=== PATIENT | female | born 1985 | race Caucasian/White ===

== ENCOUNTER → 2018-10-14 16:46 | Outpatient (REF) | payer OTHER, SELFPAY | LOC: LAB 16:46 | PROVIDERS: Family Provider Family Medicine; Visit Provider Family Medicine | DX: J02.9 Acute pharyngitis, unspecified (principal) | CPT/HCPCS: 87081; 87147 ==

== ENCOUNTER → 2019-02-14 14:45 | Outpatient (CLI) | payer OTHER, SELFPAY ==
--- NOTE | 2019-02-14 | DI.US.S_ITS ---
PROCEDURE: US OB <= 14 WEEKS FETUS INDICATIONS: INITIAL SIZING AND DATING OUTSIDE/PRIOR DATING DATA: Last menstrual period (LMP): 12/05/18 LMP-based estimated date of delivery (JAKE): 09/11/19. First dating scan (date and location): 02/14/19, current exam, [facility]. Estimated date of delivery (JAKE) from first dating scan: 09/09/19. TECHNIQUE: Real-time scanning was performed of the fetus and maternal pelvic organs, with image documentation. Endovaginal scanning was also performed to better visualize the fetus and maternal ovaries. COMPARISON: [facility], PELVIC COMPLETE, 05/18/2017, 10:50. [facility], PELVIC COMPLETE, 05/12/2017, 10:36. [facility], [facility], 02/02/2017, 13:39. [facility], OB COMPLETE LESS THAN 14 WKS, 09/02/2016, 9:17. FINDINGS: Embryo: [place]-rump length measures 3.5 cm corresponding to a calculated gestational age of 10 weeks 3 days. Embryonic heart rate measures 180 beats per minute. A yolk sac is identified. Measurement variability in dating: +/- 4 weeks by LMP, +/- 7 days by mean sac diameter (use before 6 weeks gestation if crown-rump length not able to be measured), +/- 5 days by crown-rump length (up to 8 weeks 6 days gestation), +/- 7 days by crown-rump length (up to 13 weeks 6 days gestation). Maternal organs: The uterus measures 9.5 x 6.7 x 9.1 cm. The right ovary measures 3.5 x 1.8 x 2.2 cm. There is an approximate 2.2 cm thick walled cyst with peripheral vascularity in the right ovary, most consistent with a corpus luteal cyst. The left ovary measures 2.4 x 1.7 x 1.8 cm. IMPRESSION: Single intrauterine gestation with measured heart rate of 180 beats per minute and calculated gestational age of 10 weeks, 3 days. Dictated by: Gustavo Maldonado [facility] Interpreted: Darren Blanchard MD on 02/14/2019 at 15:51 Approved by: Darren Blanchard M.D. on 02/15/2019 at 2:17
== END ==
PROVIDERS: Family Provider Family Medicine; Visit Provider Family Medicine
DX: Z34.91 Encounter for supervision of normal pregnancy, unspecified, first trimester (principal); Z3A.10 10 weeks gestation of pregnancy
CPT/HCPCS: 76801; 76817

== ENCOUNTER → 2019-04-28 15:18 | Outpatient (CLI) | payer OTHER, SELFPAY ==
--- NOTE | 2019-04-28 | DI.US.S_ITS ---
PROCEDURE: US OB >= 14 WEEKS FETUS INDICATIONS: ANATOMY SCAN OUTSIDE/PRIOR DATING DATA: Last menstrual period (LMP): 12/05/18 LMP-based estimated date of delivery (JAKE): 09/11/19. First dating scan (date and location): 02/14/19, 02/14/19, [facility]. Estimated date of delivery (JAKE) from first dating scan: 09/09/19. TECHNIQUE: Real-time scanning was performed of the fetus, with image documentation and biometric measurements. COMPARISON: [facility], , OB <= 14 WEEKS FETUS, 02/14/2019, 14:57. FINDINGS: General: A single live intrauterine gestation is present. Presentation: Vertex. Placenta: Placental position is anterior, without previa. Amniotic fluid index: 12.7 cm, normal range is 5-24 cm. heart rate: 147 beats per minute. Maternal cervical canal: 3.4 cm long. Normal lower limit is 2.5 cm. biometrics: Biparietal diameter: 4.9 cm equals 20 weeks 6 days Head circumference: 18.8 cm equals 21 weeks 1 day Abdominal circumference: 17.9 cm equals 20 weeks 5 days Femur length: 3.6 cm equals 21 weeks 2 days Estimated gestational age from initial scan: 20 weeks 6 days Composite gestational age from present scan: 21 weeks 3 days Estimated weight and percentile: 463 g, 93rd percentile Measurement variability for biometric dating: +/- 7 days from 14 weeks to 15 weeks 6 days gestation, +/- 10 days from 16 weeks to 21 weeks 6 days gestation, +/- 2 weeks from 22 weeks to 27 weeks 6 days gestation, +/- 3 weeks for 28 weeks gestation or later. weight reference: 4500 g or EFW >90/95% is considered macrosomia or large for gestational age. EFW <10% is small for gestational age. EFW 5% or less is considered intra-uterine growth restriction. Anatomic survey: Neuro: Ventricles are non-dilated at less than 10 mm. Cisterna magna is normal at 3-11 mm. Cerebellum is normal in size and morphology. Nuchal skin fold: Normal at less than 6 mm between 14-21 weeks gestational age. Face: Nose and lips, facial profile are normal. Spine: No evidence for spina bifida. Heart: 4-chambered heart is present, with normal ventricular outflow tracts. Diaphragm: Diaphragm is intact. Stomach: Left-sided stomach is present. Kidneys: No hydronephrosis. Normal is less than 5 mm in 2nd trimester, less than 7 mm in 3rd trimester. Cord: 3-vessel cord has orthotopic insertion. Bladder: Normal in size. Extremities: All 4 extremities identified. IMPRESSION: No anatomic abnormalities are identified. Normal interval growth when compared to the prior ultrasound examination. Dictated by: Naveen Young M.D. on 04/28/2019 at 15:51 Approved by: Naveen Young M.D. on 04/28/2019 at 15:53
== END ==
PROVIDERS: Family Provider Family Medicine; Visit Provider Family Medicine
DX: Z36.89 Encounter for other specified antenatal screening (principal); Z3A.21 21 weeks gestation of pregnancy
CPT/HCPCS: 76811

== ENCOUNTER → 2019-06-09 15:14 | Outpatient (CLI) | payer OTHER, SELFPAY ==
[2019-06-09 17:17] LABS: Hematocrit 32.3 % (36-46); Hemoglobin 10.9 g/dL (12.0-16.0); Mean Corpuscular HGB Conc 33.9 % (30-36); Mean Corpuscular Hemoglobin 31.3 PG (26-34); Mean Corpuscular Volume 92.3 fL (80-100); Platelet Count 238 X10^3/uL (150-400); Red Cell Distribution Width 13.3 % (11.6-14.8); White Blood Cell Count 11.1 X10^3/uL (4.5-11.0)
[2019-06-09 19:03] LABS: GTT (PREG) 1 Hour PP 50gm Dose 91 mg/dL (76-139)
== END ==
PROVIDERS: Visit Provider Student in an Organized Health Care Education/Training Program
DX: Z34.92 Encounter for supervision of normal pregnancy, unspecified, second trimester (principal)
CPT/HCPCS: 36415; 82950; 85027; 86850

== ENCOUNTER → 2019-11-01 14:47 | Outpatient (CLI) | payer OTHER, SELFPAY ==
--- NOTE | 2019-11-01 | DI.US.S_ITS ---
PROCEDURE: US PELVIC COMPLETE INDICATIONS: IRREGULAR BLEEDING, 8 WEEKS POST TECHNIQUE: Real-time scanning was performed of the pelvic organs, with image documentation. Additional endovaginal scanning was necessary due to incomplete visualization of the adnexal and endometrial structures by transabdominal scanning. COMPARISON: [facility], [place], PELVIC COMPLETE, 05/18/2017, 10:50. FINDINGS: Transabdominal scanning: Limited scanning through the kidneys shows no hydronephrosis. No pathologic free abdominal or pelvic fluid. Endovaginal scanning: Uterus: Uterus is normal in size at 8.1 x 5.2 x 3.4 cm. The endometrium measures 6.0 mm in combined thickness. No retained products of conception. Prominent scar noted with mild heterogeneity of the adjacent myometrium. Ovaries: Bilateral follicular cysts; otherwise ovaries are normal bilaterally measuring 4.1 x 2.4 x 2.6 cm on the right and 3.3 x 2.0 x 2.2 cm on the left. IMPRESSION: No retained products of conception. Dictated by: Gustavo Maldonado [facility] Interpreted: Mary Kay Iqbal MD on 11/01/2019 at 16:11 Approved by: Mary Kay Iqbal MD, PhD on 11/01/2019 at 16:29
== END ==
PROVIDERS: Family Provider Family Medicine; PCP Family Medicine; Visit Provider Obstetrics & Gynecology
DX: O72.2 Delayed and secondary postpartum hemorrhage (principal); N92.6 Irregular menstruation, unspecified; N83.02 Follicular cyst of left ovary; N83.01 Follicular cyst of right ovary
CPT/HCPCS: 76830; 76856